=== PATIENT | male | born 1995 | race Caucasian/White ===

== ENCOUNTER 2019-01-07 11:17 | Emergency (ER) | payer OTHER ==
[~2019-01-07] VITALS: Ht 165.1 cm; Wt 90.7 kg
[~2019-01-07 11:17] MED LIST: ACET325 PO; ACNE MED; ALBU90OI61 INH; AMOX250 PO; AZIT250 PO; CODACE30 PO; CRUTCH2 USE; CRUTCH4 USE; DULO30 PO; ESCI20 PO; FLUC150A PO; HYDACE5 PO; IBUP400; IBUP800 PO; MINO100 PO; MINO50 PO; NAPR500 PO; NITR100CA PO; NYQUIL; PARO20 PO; PENVK500 PO; PHENA200 PO; PROACE100 PO; PROM25 PO; RANI150 PO; RXCODACET PO; RXPHEN200 PO; RXPROACE PO; RXSULTRIDS PO; SPIR25 PO; SULTRIDS PO; SUMA25 PO; THERAFLU; [UNRECOGNIZED DRUG - REMARK]; [UNRECOGNIZED DRUG - REMARK]
[2019-01-07] MEDS ORDERED: ANDRODERM1 EAC1 (11:27)
[2019-01-07 12:02] LABS: Source, Urine Clean Catch
[2019-01-07 12:04] LABS: Bilirubin, Urine Neg (Neg); Blood, Urine Neg (Neg); Glucose Qualitative, Urine Neg (Neg); Ketones, Urine Neg (Neg); Leukocyte Esterase, Urine 3+ (Neg); Nitrite, Urine Neg (Neg); Protein, Urine Neg (Neg); Specific Gravity, Urine 1.015 (1.003-1.022); Urobilinogen, Urine NORM (Normal)
[2019-01-07 12:13] LABS: Appearance, Urine Hazy (Clear); Color, Urine Yellow (P-Yellow)
[2019-01-07 12:27] LABS: Amorphous Mod (0-Heavy); Bacteria Mod /hpf; Red Blood Cells, Urine 0-2 /hpf (0-2); Squamous Epithelial Cells Many /hpf (Few)
[2019-01-07] MEDS ORDERED: Flagyl500 MG PO (12:57)
[2019-01-07] MEDS ORDERED: Diflucan150 MG PO (12:57)
== END 2019-01-07 13:04 | disposition home or self-care (01) ==
LOC: EDSEX 11:17 → ER 11:17
PROVIDERS: Physician Assistant
DX: N76.0 Acute vaginitis (principal); B37.3 Candidiasis of vulva and vagina; J45.909 Unspecified asthma, uncomplicated; K21.9 Gastro-esophageal reflux disease without esophagitis; Z79.899 Other long term (current) drug therapy
CPT/HCPCS: 81001; 81025; 99283

== ENCOUNTER → 2023-11-28 | Outpatient (CLI) | payer OTHER ==
[~2023-11-28] MED LIST changes: +ANDRODERM1 EAC1; +Diflucan150 MG PO; +Flagyl500 MG PO
[2023-11-28 17:35] LABS: Source, Urine Voided
[2023-11-28 18:57] LABS: BASOPHILS ABSOLUTE AUTO 0.05 K/mm3 (0.00-0.23); BASOPHILS PERCENT AUTO 1 % (0-2); EOSINOPHILS ABSOLUTE AUTO 0.07 K/mm3 (0.00-0.68); EOSINOPHILS PERCENT AUTO 1 % (0-6); Hematocrit 40.6 % (37.0-53.0); Hemoglobin 13.3 g/dL (13.5-17.5); IMMATURE GRAN ABSOLUTE AUTO 0.01 K/mm3 (0.00-0.10); IMMATURE GRAN PERCENT AUTO 0 % (0-1); LYMPHOCYTES ABSOLUTE AUTO 2.74 K/mm3 (0.84-5.20); LYMPHOCYTES PERCENT AUTO 49 % (21-46); MONOCYTES ABSOLUTE AUTO 0.29 K/mm3 (0.16-1.47); MONOCYTES PERCENT AUTO 5 % (4-13); Mean Corpuscular HGB 28.5 pg (26.0-34.0); Mean Corpuscular HGB Conc 32.8 g/dL (31.5-36.5); Mean Corpuscular Volume 87 fL (80-100); Mean Platelet Volume 12.3 fL (9.1-12.4); NEUTROPHILS ABSOLUTE AUTO 2.44 K/mm3 (1.96-9.15); NEUTROPHILS PERCENT AUTO 44 % (41-73); Platelet Count 258 K/mm3 (150-400); RDW Coefficient Variation 14.7 % (11.7-14.2); Red Blood Cell Count 4.66 M/mm3 (4.30-5.90)
[2023-11-28 19:03] LABS: Bacteria Few /hpf; Red Blood Cells, Urine 0-2 /hpf (0-2); Squamous Epithelial Cells Rare /hpf (Few)
[2023-11-28 19:58] LABS: Albumin, Blood 4.3 g/dL (3.4-5.0); Anion Gap 9 mmol/L (3-11); Blood Urea Nitrogen 11 mg/dL (8-24); Bun/Creatinine Ratio 9.1 (12.0-20.0); CO2, Blood 28 mmol/L (21-32); Chloride, Blood 107 mmol/L (98-108); Creatinine, Blood 1.21 mg/dL (0.60-1.20); Glomerular Filtration Rate 84 (60-); Glucose, Blood 87 mg/dL (70-99); Phosphorus, Blood 3.4 mg/dL (2.5-4.9); Potassium, Blood 3.9 mmol/L (3.5-5.5); Sodium, Blood 140 mmol/L (136-145)
== END ==
LOC: LAB 17:32 → LAB SHORT 17:32
PROVIDERS: Internal Medicine
DX: N17.9 Acute kidney failure, unspecified (principal); R35.0 Frequency of micturition
CPT/HCPCS: 80069; 81015; 85025; 87086

== ENCOUNTER → 2024-06-24 | Outpatient (CLI) | payer OTHER ==
[2024-06-24 18:47] LABS: BASOPHILS ABSOLUTE AUTO 0.04 K/mm3 (0.00-0.23); BASOPHILS PERCENT AUTO 1 % (0-2); EOSINOPHILS ABSOLUTE AUTO 0.04 K/mm3 (0.00-0.68); EOSINOPHILS PERCENT AUTO 1 % (0-6); Hematocrit 41.6 % (37.0-53.0); Hemoglobin 13.5 g/dL (13.5-17.5); IMMATURE GRAN ABSOLUTE AUTO 0.01 K/mm3 (0.00-0.10); IMMATURE GRAN PERCENT AUTO 0 % (0-1); LYMPHOCYTES ABSOLUTE AUTO 2.39 K/mm3 (0.84-5.20); LYMPHOCYTES PERCENT AUTO 47 % (21-46); MONOCYTES ABSOLUTE AUTO 0.29 K/mm3 (0.16-1.47); MONOCYTES PERCENT AUTO 6 % (4-13); Mean Corpuscular HGB 26.9 pg (26.0-34.0); Mean Corpuscular HGB Conc 32.5 g/dL (31.5-36.5); Mean Corpuscular Volume 83 fL (80-100); Mean Platelet Volume 11.6 fL (9.1-12.4); NEUTROPHILS ABSOLUTE AUTO 2.28 K/mm3 (1.96-9.15); NEUTROPHILS PERCENT AUTO 45 % (41-73); Platelet Count 291 K/mm3 (150-400); RDW Coefficient Variation 14.6 % (11.7-14.2); RDW Standard Deviation 44.3 fL (35.1-46.3); Red Blood Cell Count 5.01 M/mm3 (4.30-5.90); White Blood Cell Count 5.05 K/mm3 (4.00-11.30)
[2024-06-24 19:10] LABS: Albumin, Blood 4.2 g/dL (3.4-5.0); Albumin/Globulin Ratio 1.2 (0.8-1.8); Bilirubin, Total 0.4 mg/dL (0.1-1.0); Bun/Creatinine Ratio 7.9 (12.0-20.0); Calcium, Blood 9.2 mg/dL (8.5-10.1); Creatinine, Blood 1.14 mg/dL (0.60-1.20); Globulin, Blood 3.6 g/dL (2.2-4.0); Potassium, Blood 4.1 mmol/L (3.5-5.5); Total Protein, Blood 7.8 g/dL (6.4-8.2)
== END ==
LOC: LAB SHORT 17:09 → LAB 17:09
PROVIDERS: Internal Medicine
DX: R10.13 Epigastric pain (principal)
CPT/HCPCS: 80053; 83690; 85025